=== PATIENT | female | born 1955 | race Caucasian/White ===

== ENCOUNTER 2021-10-08 15:55 | Emergency (ER) | payer OTHER, MEDICAID ==
[~2021-10-08] VITALS: Ht 170.2 cm; Wt 58.1 kg
[2021-10-08 15:55] VITALS: BP_SYST 114
--- NOTE | 2021-10-08 15:55 | NUR ---
Patient triaged and placed in waiting room. VSS and patient appears in no acute distress at this time. Accompanied by SELF, awaiting available bed, and MD notified of need for MSE.
--- NOTE | 2021-10-08 16:30 | NUR ---
Pt in ER with sister bedside. CC protrusion from vaginal area. Pt denies NV Pt is aaox4 with NAD. Afebrile, even unlabored respiration.
--- NOTE | 2021-10-08 17:13 | NUR ---
BROUGHT BACK TO BED #7 AND REPORT GIVEN TO MAGDA
--- NOTE | 2021-10-08 17:15 | NUR ---
DR MARTINEZ AT BEDSIDE FOR EVALUATION
--- NOTE | 2021-10-08 17:30 | NUR ---
Patient given written and verbal discharge instructions and verbalizes understanding. ER MD discussed with patient the results and treatment provided. Patient in stable condition. ID arm band removed. Opportunity for questions provided and answered. Medication side effect fact sheet provided.
[2021-10-08 19:01] VITALS: BP_SYST 114
== END 2021-10-08 19:01 | disposition home or self-care (01) ==
LOC: SED 15:55
DX: N81.4 Uterovaginal prolapse, unspecified (principal); Z79.899 Other long term (current) drug therapy
CPT/HCPCS: 99281